=== PATIENT | female | born 1945 | race Caucasian/White ===

== ENCOUNTER 2017-11-02 11:43 | Day surgery (SDC) | payer OTHER ==
[2017-11-02] MEDS ORDERED: PROPOFOL 40 ML (14:12)
== END 2017-11-02 15:57 | disposition home or self-care (01) ==
LOC: GIL 11:43
DX: Z86.010 Personal history of colon polyps (principal); K44.9 Diaphragmatic hernia without obstruction or gangrene; E66.9 Obesity, unspecified; Z68.30 Body mass index [BMI] 30.0-30.9, adult
CPT/HCPCS: 43239; 88305; 88312